=== PATIENT | male | born 1955 | race Caucasian/White ===

== ENCOUNTER 2017-03-11 11:25 | Day surgery (SDC) | payer OTHER ==
[~2017-03-11] VITALS: Ht 181.6 cm; Wt 81.6 kg
[2017-03-11] VITALS (15 sets, daily range): BP systolic 142–159; BP diastolic 78–92
--- NOTE | 2017-03-11 08:53 | Operative Note - PDOC ---
Operative Note Operative Note Pre-op Diagnosis: left shoulder rct Procedure: left shoulder arthroscopy rc repair/sad Post-op Diagnosis: same as pre-op plus Operative Findings: consistent w/pre-op dx studies Anesthesia: regional Specimen: none Complications: none Condition: stable Estimated Blood Loss: none Implant(s) used?: Yes YAYO SINGH Mar 11, 2017 08:53
--- NOTE | 2017-03-11 08:53 | Pre-Procedure Note/Attestation ---
Pre-Procedure Note/Attestation Complete Prior to Procedure Planned Procedure: left Procedure Narrative: shoulder arthroscopy, possible sad, posssible rct repair Indications for Procedure Pre-Operative Diagnosis: left shoulder rct Attestation I attest that I discussed the nature of the procedure; its benefits; risks and complications; and alternatives (and the risks and benefits of such alternatives ), prior to the procedure, with the patient (or the patient's legal welding equipment sales representative). I attest that, if there was a reasonable possibility of needing a blood transfusion, the patient (or the patient's legal welding equipment sales representative) was given the [facility] standardized written summary, pursuant to the [place] Blood Safety Act ([place] Health and Safety Code # 1645, as amended). I attest that I re-evaluated the patient just prior to the surgery and that there has been no change in the patient's H&P, except as documented below: YAYO SINGH Mar 11, 2017 08:53
[~2017-03-11 11:25] MED LIST: ATORVASTATIN CA40 MG ORAL; Acetaminophen (Non formulary) 100 ML IV ONE; CARTIA XT120 MG ORAL; D5 1/2NS 1,000 ML IV SCH; GLATOPA20 MG/1 ML SQ; HYDROmorphone 1mg/ml Carpuject SUBQ PRN; MULTIVITAMINS1 EAC2 ORAL; Norco 5mg/325mg tab ORAL PRN; Tylenol #3 tab (300mg/30mg) ORAL PRN; VITAMIN D1000 UNI1 ORAL; ceFAZolin 1gm in D5W 55ml IVP ONE; celeBREX 200mg Cap **SURGERY PATIENTS ONLY ORAL ONE; oxyCONTIN 20mg tab ORAL ONE
[2017-03-11] MEDS ORDERED: celeBREX 200mg Cap **SURGERY PATIENTS ONLY ORAL ONE (12:28)
[2017-03-11] MEDS ORDERED: Propofol 200mg/20ml IV ONE (13:39)
[2017-03-11] MEDS ORDERED: EPINEPHrine 1mg/1ml Amp ONE (13:40)
[2017-03-11] MEDS ORDERED: Bupivacaine 0.25% Inj 30ml INJ ONE (13:40)
[2017-03-11] MEDS ORDERED: Ropivacaine 5mg/ml Vial 30ml INJ ONE (13:40)
[2017-03-11] MEDS ORDERED: Neostigmine 1mg/ml 10ml Inj ONE ×2 (13:40→13:50)
[2017-03-11] MEDS ORDERED: Metoclopramide 10mg/2ml Inj ONE (13:50)
[2017-03-11] MEDS ORDERED: Glycopyrrolate 0.2mg/ml 1ml Vial ONE (13:50)
[2017-03-11] MEDS ORDERED: Lidocaine 1% MPF 10mg/ml 5ml ONE (13:50)
[2017-03-11] MEDS ORDERED: Midazolam 2mg/2ml Inj ONE (13:50)
[2017-03-11] MEDS ORDERED: Zemuron 50mg/5ml Inj IV ONE (13:50)
[2017-03-11] MEDS ORDERED: ePHEDrine 50mg/ml Inj ONE (13:50)
[2017-03-11] MEDS ORDERED: NS Irrig 1000ml ONE (13:50)
[2017-03-11] MEDS ORDERED: LR 1000ml ONE (13:50)
[2017-03-11] MEDS ORDERED: fentaNYL 100 mcg/2 mL IV ONE (13:50)
--- NOTE | 2017-03-11 16:10 | Immediate Post-Op Evaluation ---
Immediate Post-Op Evalulation Immediate Post-Op Evalulation Procedure: Left Rotatot cuff Repair Date of Evaluation: Mar 11, 2017 Time of Evaluation: 16:06 IV Fluids: 800 Blood Pressure Systolic: 153 Blood Pressure Diastolic: 87 Pulse Rate: 77 Respiratory Rate: 14 O2 Sat by Pulse Oximetry: 99 Temperature (Fahrenheit): 98.6 Pain Score (1-10): 0 Nausea: No Vomiting: No Complications none Patient Status: awake, reacts, patent Hydration Status: adequate Drug: ancef Given Within 1 Hr of Incision: Yes Time Given: 14:30 ASHOK LANIER CRNA Mar 11, 2017 16:10
--- NOTE | 2017-03-11 16:13 | Anethesia Preoperative Eval ---
Anesthesia Pre-op PMH/ROS General Date of Evaluation: Mar 11, 2017 Time of Evaluation: 13:50 Anesthesiologist: Tj ASA Score: ASA 2 Mallampati Score Class I : Soft palate, uvula, fauces, pillars visible Class II: Soft palate, uvula, fauces visible Class III: Soft palate, base of uvula visible Class IV: Only hard plate visible Mallampati Classification: Class II Surgeon: Anuj Diagnosis: rotator cuff tear Surgical Procedure: rotator cuff repair Anesthesia History: none Family History: no anesthesia problems Allergies: Coded Allergies: No Known Allergies (Unverified , 03/10/17) Medications: see eMAR Past Medical History Cardiovascular: Reports: HTN, arrhythmia - Hx of A fib, other Pulmonary: Reports: COPD Gastrointestinal/Genitourinary: Denies: GERD, CRI, ESRD, other Neurologic/Psychiatric: Denies: dementia, CVA, depression/anxiety, TIA, other Endocrine: Denies: DM, hypothyroidism, steroids, other HEENT: Denies: cataract (L), cataract (R), glaucoma, ALUTIIQ (L), ALUTIIQ (R), other Hematology/Immune: Denies: anemia, DVT, bleeding disorder, other Musculoskeletal/Integumentary: Reports: other - MS PMH Narrative: MS -No signs of weakness, plays tennis; Dentist PSxH Narrative: colonoscopy Anesthesia Pre-op Phys. Exam Physician Exam Last Vital Signs Date Time Temp Pulse Resp B/P (MAP) Pulse Ox O2 Delivery O2 Flow Rate FiO2 03/11/17 12:16 97.8 62 20 142/92 96 Constitutional: NAD Neurologic: CN 2-12 intact Cardiovascular: RRR Respiratory: CTA Gastrointestinal: S/NT/ND Airway Exam Mallampati Score: Class II MO: full Neck: normal TMD: 2fb ROM: full Dentures: no upper, no lower Anesthesia Pre-op A/P Labs wnl Studies Pre-op Studies: EKG - Sr Risk Assessment & Plan Assessment: denies changes in health Plan: general with ISB Status Change Before Surgery: No Pre-Antibiotics Drug: ancef Given Within 1 Hr of Incision: Yes Time Given: 14:30 ASHOK LANIER CRNA Mar 11, 2017 16:13
--- NOTE | 2017-03-11 23:00 | Operative Note - Dictated ---
DATE OF OPERATION: 03/11/2017 PREOPERATIVE DIAGNOSES: 1. Traumatic left shoulder with full-thickness rotator cuff tear. 2. Subacromial spur. PROCEDURES: 1. Left shoulder arthroscopy and extensive intraarticular debridement. 2. Arthroscopic rotator cuff repair. 3. Subacromial decompression and bursectomy. SURGEON: Gerardo Leslie M.D. ANESTHESIA: Interscalene with general. INDICATION FOR PROCEDURE: The patient is a pleasant gentleman, who has had a full-thickness rotator cuff tear. Given continued pain and difficulty with activities, he elected to undergo left shoulder arthroscopic rotator cuff repair. Risks, limitations, expectations, and complications of the procedure were discussed in detail including the need for future surgery, risk of anesthesia, medical complications, DVT, PE, and mortality risks. All questions were addressed. DESCRIPTION OF PROCEDURE: An informed consent was obtained. The patient was taken to the operative room and placed supine under monitored anesthesia control. Left arm was prepped and draped in a sterile manner. Time-out was performed. Portal sites were marked and injected with 0.25% Marcaine with epinephrine. Inferolateral stab incision was then made. Trocar was introduced into the glenohumeral joint. Significant fraying of the undersurface of the rotator cuff. There is no significant chondral damage. The anterior labrum appeared to be intact. There appeared to be a complete tear of the biceps tendon. The footprint of the supraspinatus tendon and infraspinatus also was completely detached off the bone. A shaver was then placed into the glenohumeral joint and debridement/synovectomy was performed. Once that was completed, the camera was repositioned in the subacromial space. Complete bursectomy was performed. Undersurface of the acromion was identified. Acromioplasty was started from lateral to medial and completed from posterior to anterior. Once that was completed, the bone lateral to the articular margin was debrided off soft tissues. Cornell was then placed. Two mattress sutures were placed. Through the second stab incision, a lateral row anchor was placed, was cinched down, and secured the footprint. Once that was done, the camera was repositioned in the glenohumeral joint. The footprint was recreated. The camera was removed. Portal sites were closed using 3-0 Monocryl sutures. Steri-Strips and a sterile dressing were applied. The patient was awoken and taken to the recovery with stable vital signs. ESTIMATED BLOOD LOSS: Minimal. COMPLICATIONS: None. SPECIMENS: None. IMPLANTS: Include two Biomet arthroscopic anchors. Gerardo Leslie M.D. DR: LISSETH JOB#: [id number] CC:
[2017-03-15 07:05] VITALS: BP 147/86
--- NOTE | 2017-03-15 07:05 | 48 Hour Post Anesthesia Eval ---
Post Anesthesia Evaluation Procedure: Left Rotatot cuff Repair Date of Evaluation: Mar 15, 2017 Time of Evaluation: 07:05 Blood Pressure Systolic: 147 0: 86 Pulse Rate: 75 Respiratory Rate: 14 O2 Sat by Pulse Oximetry: 100 Airway: patent Nausea: No Vomiting: No Pain Intensity: 0 Hydration Status: adequate Cardiopulmonary Status: stable Mental Status/LOC: patient returned to baseline Post-Anesthesia Complications: none Follow-up care needed: N/A ASHOK LANIER CRNA Mar 15, 2017 07:05
== END 2017-03-11 13:30 | disposition home or self-care (01) ==
LOC: SUR 11:25
DX: M75.122 Complete rotator cuff tear or rupture of left shoulder, not specified as traumatic (principal); M75.92 Shoulder lesion, unspecified, left shoulder; I10 Essential (primary) hypertension; G35 Multiple sclerosis
CPT/HCPCS: 29823; 29826; 29827; C1713; J0171; J0690; J2250; J2405; J2704; J2710; J2765; J2795; J3010; J3490; J7120; 94003; 94150